=== PATIENT | male | born 1975 | race Caucasian/White ===

== ENCOUNTER 2019-07-22 11:51 | Emergency (ER) | payer SELFPAY ==
--- NOTE | 2019-07-22 12:15 | EDM.PDOC ---
ED HPI GENERAL MEDICAL PROBLEM - General Chief Complaint: Respiratory Problem Stated Complaint: COUGH Time Seen by Provider: 07/22/19 12:00 Source of Information: Reports: Patient History Limitations: Reports: No Limitations - History of Present Illness INITIAL COMMENTS - FREE TEXT/NARRATIVE: HISTORY AND PHYSICAL: History of present illness: Patient is a 44-year-old male who presents to the emergency room today with complaints of cough and generally feeling unwell 1 week. He states that symptoms have progressively gotten worse which brought him to the emergency room today. He has had subjective fevers and chills, although has not taken an actual temperature. Patient denies any headache, change in vision, syncope or near syncope. Denies any chest pain, back pain, or shortness of breath. Denies any GI or symptoms. Patient has been eating and drinking appropriately. Review of systems: As per history of present illness and below otherwise all systems reviewed and negative. Past medical history: As per history of present illness and as reviewed below otherwise noncontributory. Surgical history: As per history of present illness and as reviewed below otherwise noncontributory. Social history: See social history for further information Family history: As per history of present illness and as reviewed below otherwise noncontributory. Physical exam: General: Well-developed and well-nourished 44-year-old male. Alert and oriented. Nontoxic appearing and in no acute distress. HEENT: Atraumatic, normocephalic, pupils equal and reactive bilaterally, negative for conjunctival pallor or scleral icterus, mucous membranes moist, TMs normal bilaterally, throat clear, neck supple, nontender, trachea midline. No drooling or trismus noted. No meningeal signs. No hot potato voice noted. Lungs: Clear to auscultation with diminished bases bilaterally, breath sounds equal bilaterally, chest nontender. Heart: S1S2, regular rate and rhythm without overt murmur Abdomen: Soft, nondistended, nontender. Negative for masses or hepatosplenomegaly. Negative for costovertebral tenderness. Skin: Intact, warm, dry. No lesions or rashes noted. Extremities: Atraumatic, moves all extremities per self without difficulty or deficits, negative for cords or calf pain. Neurovascular unremarkable. Neuro: Awake, alert, oriented. Cranial nerves II through XII unremarkable. Cerebellum unremarkable. Motor and sensory unremarkable throughout. Exam nonfocal. Notes: Negative influenza screening. Chest x-ray shows no acute findings. Due to the length of symptoms and history of smoking and will treat with a Z-Inocente and Phenergan with codeine for symptom relief. Supportive care measures were reviewed and discussed. Voices understanding and is agreeable to plan of care. Denies any further questions or concerns at this time. Diagnostics: CXR, influenza Therapeutics: None Prescription: Zpak Phenergan with Cod. Impression: Bronchitis Plan: 1. Stop smoking. 2. Take the medications as prescribed. The Phenergan with codeine may cause drowsiness a do not take it while driving or needing to be functioning outside of the house. He may continue using Tylenol and ibuprofen routinely for pain and fever management. 3. Follow up with your primary care provider. Return to the ED as needed as discussed. Definitive disposition and diagnosis as appropriate pending reevaluation and review of above. Generalized Pain Score (Numeric/FACES): 9 - Related Data Allergies Allergy/AdvReac Type Severity Reaction Status Date / Time No Known Allergies Allergy Verified 07/22/19 12:10 Home Meds: Home Meds . [No Known Home Meds] 07/22/19 [History] ED ROS GENERAL - Review of Systems Review Of Systems: See Below ED EXAM, GENERAL - Physical Exam Exam: See Below (See dictation) Course - Vital Signs Last Recorded V/S: Last Vital Signs Temp 98.2 F 07/22/19 12:06 Pulse 103 H 07/22/19 12:06 Resp 18 07/22/19 12:06 BP 125/87 07/22/19 12:06 Pulse Ox 100 07/22/19 12:06 - Orders/Labs/Meds Orders: Active Orders 24 hr Category Date Time Status Chest 2V [CR] Stat Exams 07/22/19 12:06 Taken Departure - Departure Time of Disposition: 12:47 Disposition: Home, Self-Care 01 Clinical Impression: Bronchitis - Discharge Information Instructions: Acute Bronchitis, Adult, Fibh-tn-Cwho Forms: ED Department Discharge Additional Instructions: The following information is given to patients seen in the emergency department who are being discharged to home. This information is to outline your options for follow-up care. We provide all patients seen in our emergency department with a follow-up referral. The need for follow-up, as well as the timing and circumstances, are variable depending upon the specifics of your emergency department visit. If you don't have a primary care physician on staff, we will provide you with a referral. We always advise you to contact your personal physician following an emergency department visit to inform them of the circumstance of the visit and for follow-up with them and/or the need for any referrals to a consulting specialist. The emergency department will also refer you to a specialist when appropriate. This referral assures that you have the opportunity for follow-up care with a specialist. All of these measure are taken in an effort to provide you with optimal care, which includes your follow-up. Under all circumstances we always encourage you to contact your private physician who remains a resource for coordinating your care. When calling for follow-up care, please make the office aware that this follow-up is from your recent emergency room visit. If for any reason you are refused follow-up, please contact the [facility] Emergency Department at and asked to speak to the emergency department charge nurse. [facility] [address] [place] [id number] [place] [address] 1. Stop smoking. 2. Take the medications as prescribed. The Phenergan with codeine may cause drowsiness a do not take it while driving or needing to be functioning outside of the house. He may continue using Tylenol and ibuprofen routinely for pain and fever management. 3. Follow up with your primary care provider. Return to the ED as needed as discussed. - My Orders Last 24 Hours: My Active Orders 07/22/19 12:06 Chest 2V [CR] Stat - Assessment/Plan Last 24 Hours: My Active Orders 07/22/19 12:06 Chest 2V [CR] Stat
--- NOTE | 2019-07-22 13:06 | CR ---
EXAM DATE: 07/22/19 PATIENT'S AGE: 44 Chest: Two views of the chest are obtained. Comparison: No prior chest imaging. Increased density is noted within the left lung base. Lungs otherwise are clear. Heart size is normal. Tortuous thoracic aorta is noted. Bony structures appear within normal limits. Impression: 1. Increased density within left lung base most likely representing pneumonia if patient has infectious symptoms. Diagnostic code #3 Report Signed by Proxy. [facility]
== END 2019-07-22 12:59 | disposition home or self-care (01) ==
LOC: MW.ED 11:51
DX: J40 Bronchitis, not specified as acute or chronic (principal)
CPT/HCPCS: 71046; 71046-26; 87804; 99283; 99283-25